=== PATIENT | male | born 2005 | race Caucasian/White ===

== ENCOUNTER 2025-03-12 20:36 | Emergency (ER) | payer OTHER ==
[~2025-03-12] VITALS: Ht 162.6 cm; Wt 62.2 kg
[2025-03-13 01:27] VITALS: BP 131/70; TEMP 99.9; O2SAT 97
== END 2025-03-13 01:28 | disposition home or self-care (01) ==
LOC: M ED 20:36
DX: R50.9 Fever, unspecified (principal); B34.1 Enterovirus infection, unspecified